=== PATIENT | female | born 1970 | race Caucasian/White ===

== ENCOUNTER → 2024-09-21 | Emergency (ER) | payer BC ==
[~2024-09-21] VITALS: Ht 157.5 cm; Wt 72.6 kg
[~2024-09-21] MED LIST: 0.9 % SODIUM CHLORIDE 1,000 ML IV ONE; CEFTRIAXONE SODIUM 1,000 MG VIAL IM ONE; CEFTRIAXONE SODIUM 1,000 MG VIAL ONE; FAMOtidine 10 MG/ML (4ML VIAL) IV ONE; ONDANSETRON HCL 2 MG/ML VIAL IV ONE; PIPERACILLIN/TAZOBACTAM SODIUM 3.375 GM VIAL IV ONE
[2024-09-21 23:07] LABS: HEMATOCRIT 42.5 % (36.0-45.00); HEMOGLOBIN 14.6 g/dL (12.0-15.00); MEAN CELL VOLUME 88.2 fL (80.00-100.00); MEAN CORPUSCULAR HEMOGLOBIN 30.3 pg (27.00-32.0); MEAN CORPUSCULAR HGB CONC 34.4 g/dl (32.0-36.0); PLATELET COUNT 376 K/uL (150-450); RED BLOOD COUNT 4.81 M/uL (4.00-6.00); RED CELL DISTRIBUTION WIDTH 13.1 % (11.5-14.5)
[2024-09-21 23:34] LABS: ALBUMIN 4.2 gm/dL (3.4-5.0); BILIRUBIN TOTAL 0.4 mg/dL (0.3-1.2); CALCIUM 10.4 mg/dL (8.5-10.1); CREATININE SERUM 0.74 mg/dL (0.55-1.02); GFR 81.18; GLOBULINA 3.3 G/DL (2.4-3.5); POTASSIUM 3.74 mEq/L (3.5-5.1); TOTAL PROTEIN 7.5 gm/dL (6.4-8.2)
== END | disposition left against medical advice (07) ==
LOC: ER 20:47
PROVIDERS: General Practice
DX: R11.10 Vomiting, unspecified (principal); I10 Essential (primary) hypertension; Z20.822 Contact with and (suspected) exposure to COVID-19; Z88.8 Allergy status to other drugs, medicaments and biological substances